=== PATIENT | male | born 1955 | race Caucasian/White ===

== ENCOUNTER 2018-07-01 19:41 | Emergency (ER) | payer MEDICAID ==
[2018-07-01] MEDS ORDERED: GLUCAGON HCL 1 MG VIAL IVP ONE (20:15)
--- NOTE | 2018-07-01 20:16 | EDPHY ---
H & P Stated Complaint: Possible esophageal foreign body--eating large chunk meat 2 hrs ago Time Seen by Provider: 07/01/18 19:49 HPI/ROS: CHIEF COMPLAINT: Foreign body sensation in esophagus HISTORY OF PRESENT ILLNESS: A 62-year-old male presents with foreign body sensation in esophagus. He was eating steak 2 hr ago, when he felt that this diet became lodged in his esophagus. He has had moderate ongoing chest pain since the occurrence. He vomited after the episode, was able to tolerate a small amount of water. Tolerating saliva well. No prior similar symptoms. REVIEW OF SYSTEMS: complete 10 point ROS reviewed and is negative except for the noted elements in the HPI - Medical/Surgical History Hx Asthma: No Hx Chronic Respiratory Disease: No Hx Diabetes: No Hx Cardiac Disease: No Hx Renal Disease: No Hx Cirrhosis: No Hx Alcoholism: No Hx HIV/AIDS: No Hx Splenectomy or Spleen Trauma: No Other PMH: denies - Social History Smoking Status: Never smoked - Physical Exam Exam: General Appearance: Alert, pleasant Eyes: Pupils equal and round, no conjunctival pallor or injection ENT, Mouth: Mucous membranes moist Neck: Normal inspection Respiratory: Lungs are clear to auscultation Cardiovascular: Regular rate and rhythm Gastrointestinal: Abdomen is soft and nontender Neurological: A&O, nonfocal, normal gait Skin: Warm and dry, no rash Extremities: Normal inspection Psychiatric: Mood and affect normal Constitutional: Initial Vital Signs Temperature (C) 36.5 C 07/01/18 19:44 Heart Rate 77 07/01/18 19:44 Respiratory Rate 18 07/01/18 19:44 Blood Pressure 160/83 H 07/01/18 19:44 O2 Sat (%) 98 07/01/18 19:44 O2 Delivery Mode Room Air Allergies/Adverse Reactions: No Known Allergies Allergy (Verified 12/06/13 19:06) Home Medications: Medication Instructions Recorded NK [No Known Home Meds] 07/01/18 Medical Decision Making ED Course/Re-evaluation: Glucagon 1 mg IV given for esophageal meat impaction 8:50 p.m.-patient feels much better, symptoms have resolved. Able to tolerate oral fluids well. Will discharge home. Follow up with GI. - Data Points Medications Given: Discontinued Medications Glucagon (Glucagon) 1 mg IVP EDNOW ONE Stop: 07/01/18 20:16 Last Admin: 07/01/18 20:30 Dose: 1 mg Departure - Departure Disposition: Home, Routine, Self-Care Clinical Impression: Esophageal obstruction due to food impaction Condition: Good Instructions: Food Impaction (ED) Referrals: Arie Lima MD, FACG [Medical Doctor] - As per Instructions (Call to make an appointment)
[2018-07-01 21:08] VITALS: BP 136/77
== END 2018-07-01 21:18 | disposition home or self-care (01) ==
DX: T18.128A Food in esophagus causing other injury, initial encounter (principal); Y92.9 Unspecified place or not applicable
CPT/HCPCS: 96374; J1610